=== PATIENT | female | born 1995 | race Caucasian/White ===

== ENCOUNTER 2016-11-18 15:02 | Emergency (ER) ==
[2016-11-18 15:09] VITALS: BP 145/65
[2016-11-18] MEDS ORDERED: ALBUTEROL NEB INH ONE (16:15)
[2016-11-18] MEDS ORDERED: DUONEB (A & A) INH ONE (16:15)
[2016-11-18] MEDS ORDERED: DECADRON IM ONE (16:17)
[2016-11-18] MEDS ORDERED: PULMICORT INH ONE (16:17)
--- NOTE | 2016-11-18 16:21 | PROVIDER DOCUMENTATION ---
HPI-General Adult - General Source: patient - History of Present Illness -Gen Adult Nature of Presenting Problems: 21 YOWF PRESENTS TO ED WITH C/O PT STATES SHE HAS HAD SEVERE COUGH, CONGESTION , AND BODY ACHES X 2 DAYS. PT DENIES ANY N/V/D. PT STATES SHE HAD A FEVER OF 103 AT HOME YESTERDAY, BUT FEVER HAS SUBSIDED NOW. Location of Pain/Injury: reports: generalized Pain Radiation: reports: no radiation Quality of Pain: reports: aching Severity: reports: moderate Onset/Duration: reports: 2 days ago Timing: reports: still present Context/Activities at Onset: reports: light activity Modifying Factors: improves with: nothing Associated Symptoms: reports: cough, muscle aches, sinus congestion/drainage Similar Symptoms Previously?: No Recently seen or treated by another doctor?: No <Donato Ennis - Last Filed: 11/18/16 16:29> <Dioni Barragan - Last Filed: 11/18/16 17:34> - General Chief Complaint: Cold Symptoms Stated Complaint: COUGH/SOB Time Seen by Provider: 11/18/16 16:10 Allergies/Adverse Reactions: Patient Allergies Allergy/AdvReac Type Severity Reaction Status Date / Time No Known Allergies Allergy Verified 09/01/16 18:56 Home Medications: Home Medication List Medication Instructions Recorded Confirmed Last Taken Type Hydrocodone Bit/Homatropine 5 ml PO Q6H PRN #100 ml 11/18/16 Unknown Rx [Hycodan Syrup] Prednisone 20 mg PO BID #10 tablet 11/18/16 Unknown Rx Review of Systems - Adult - REVIEW OF SYSTEMS - ADULT Constitutional: reports: fever (103 AT HOME YESTERDAY). denies: chills Eyes: reports: no symptoms reported Ears, Nose, Mouth & Throat: reports: no symptoms reported Cardiovascular: denies: chest pain, palpitations, syncope Respiratory: reports: cough, wheezing (MILD). denies: shortness of breath Gastrointestinal: denies: abdominal pain, diarrhea, nausea, vomiting Genitourinary: reports: no symptoms reported Musculoskeletal: denies: back pain, neck pain Integumentary: reports: no symptoms reported Neurological: denies: dizziness/vertigo, headache/migraines, syncope Psychiatric: reports: no symptoms reported Endocrine: reports: no symptoms reported Hematologic/Lymphatic: reports: no symptoms reported Allergic/Immunologic: reports: no symptoms reported All Other Systems: Reviewed and Negative <Donato Ennis - Last Filed: 11/18/16 16:29> Past History - Adult - PAST MEDICAL HISTORY-ADULT Review of Records: reports: Nursing Assessment Review, Medications Reviewed Neurological: reports: headaches/migraines - PRIOR SURGERIES/PROCEDURES Surgical/Procedure History: reports: appendectomy (pt unsure), tonsillectomy - PRIOR HOSPITALIZATIONS Prior Hospitalizations: reports: for other non-related - IMMUNIZATION STATUS Childhood Immunizations: See Nurse Assessment Flu Vaccine: See Nurse Assessment - FAMILY HISTORY Family History: reviewed, not pertinent - SOCIAL HISTORY Smoking: cigar, less than 1 pack/day Provider spent 3-5 mins advising pt. on dangers of tobacco.: Discussed manners to quit use, and f/u contacts for add'l counseling. Substance Use: denies Alcohol Use Frequency: never Living Situation: family <Donato Ennis - Last Filed: 11/18/16 16:29> Physical Exam-General - CONSTITUTIONAL General Appearance: alert, mild distress - EYES Eyes: PERRL/EOMI, pink conjunctivae - HEAD, EARS, NOSE, MOUTH & THROAT HENMT: normocephalic/atraumatic, moist mucous membranes - NECK Neck: non-tender, full range of motion, supple - RESPIRATORY Respiratory: chest non-tender, wheezing (MILD EXPIRATORY) - CARDIOVASCULAR Cardiovascular: normal peripheral pulses, regular rate, rhythm - GASTROINTESTINAL (ABDOMEN) Abdominal Exam: normal bowel sounds, non tender, soft - LYMPHATIC Lymphatic: no adenopathy - MUSCULOSKELETAL Back Exam: normal inspection, no CVA tenderness, no vertebral tenderness Extremity: normal range of motion, non-tender - SKIN Integumentary: normal color, normal turgor, warm/dry - NEUROLOGIC Neurologic: grossly normal - PSYCHIATRIC Psych/Mental Status: oriented x 3 <Donato Ennis - Last Filed: 11/18/16 16:29> Progress - PLAN OF CARE/RESULTS Progress/Plan/Lab Results: Laboratory Tests 11/18/16 15:18 Influenza A (Rapid) NEGATIVE Influenza B (Rapid) NEGATIVE Orders Category Date Time Status Flu [INFLUENZA SCREEN PL] Stat Lab 11/18/16 15:18 Completed Albuterol 2.5MG/Ipratrop 0.5MG [Duoneb (A & A)] Med 11/18/16 16:15 Discontinued 3 ml INH NOW ONE Albuterol [Albuterol Neb] Med 11/18/16 16:15 Discontinued 5 mg INH NOW ONE Budesonide [Pulmicort] Med 11/18/16 16:17 Discontinued 0.5 mg INH NOW ONE Dexamethasone [Decadron] Med 11/18/16 16:17 Discontinued 8 mg IM NOW ONE Aerosol Treatments Routine Oth 11/18/16 16:16 Active Aerosol Treatments Routine Oth 11/18/16 16:17 Active Aerosol Treatments Stat Ot 11/18/16 16:16 Active Aerosol Treatments Stat Oth 11/18/16 16:17 Active Vital Signs - 24 hr 11/18/16 15:06 Temperature 98.3 F Pulse Rate 86 Respiratory 18 Rate Blood Pressure 145/65 O2 Sat by Pulse 99 Oximetry <Donato Ennis - Last Filed: 11/18/16 16:29> - REASSESSMENT Reassessment #1 Time Reassessed: 17:30 (BS clear now. Can inhale without coughing. Is using albuteral from Family "Communal collection") Status: improving <Dioni Barragan - Last Filed: 11/18/16 17:34> Departure <Donato Ennis - Last Filed: 11/18/16 16:29> - Departure Time of Disposition Order: 17:31 Certified Medical Emergency: Emergent <Dioni Barragan - Last Filed: 11/18/16 17:34> - Departure DIAGNOSIS: Bronchitis Disposition: HOME 01 Condition: Good Additional Instructions: ED Follow Up Instructions: You have been treated by a care provider in the Emergency Department. These instructions are being provided to you so you can have an understanding of how to care for yourself upon discharge. Upon discharge from the Emergency Department, you are responsible for making arrangements for follow-up care by a physician of your choice. Take all prescribed medications as directed. Return to the Emergency Department immediately for any new or worsening symptoms. You may call the Physician Referral phone number at [phone] to obtain a list of Physicians who are taking new patients. Prescriptions: Hydrocodone Bit/Homatropine [Hycodan Syrup] 5 ml PO Q6H PRN #100 ml PRN Reason: Cough Prednisone 20 mg PO BID #10 tablet Instructions: Acute Bronchitis Attestation - Scribe Verification/Attestation Scribe:: Donato Ennis Acting as Scribe for:: Dioni Barragan Scribe documention review:: This chart was documented by a scribe and accurately reflects the service the provider performed and the decisions made by the provider. <Donato Ennis - Last Filed: 11/18/16 16:29> Physician Attestation - Physician Attestation I, the provider, attest to the following statement:: Dioni Barragan Physician documentation Attestation:: This documentation recorded by the scribe accurately reflects the service I personally performed and the decisions made by me. <Dioni Barragan - Last Filed: 11/18/16 17:34>
== END 2016-11-18 17:59 | disposition home or self-care (01) ==
LOC: P.ED 15:02
DX: J40 Bronchitis, not specified as acute or chronic (principal); R05 Cough; R09.81 Nasal congestion; M79.1 Myalgia; R50.9 Fever, unspecified; R06.02 Shortness of breath; R06.2 Wheezing; F17.210 Nicotine dependence, cigarettes, uncomplicated; Z71.6 Tobacco abuse counseling
CPT/HCPCS: 87804; 94640; J1100

== ENCOUNTER 2016-11-20 17:29 | Emergency (ER) ==
--- NOTE | 2016-11-20 17:48 | PROVIDER DOCUMENTATION ---
HPI-General Adult - General Chief Complaint: Cold Symptoms Stated Complaint: COUGHING,CONGESTED Time Seen by Provider: 11/20/16 17:48 Allergies/Adverse Reactions: Patient Allergies Allergy/AdvReac Type Severity Reaction Status Date / Time No Known Allergies Allergy Verified 11/20/16 17:57 Home Medications: Home Medication List Medication Instructions Recorded Confirmed Last Taken Type Prednisone 20 mg PO BID #10 tablet 11/18/16 11/20/16 11/19/16 Rx Budesonide [Pulmicort] 0.5 mg INH RTQ12H #10 neb 11/20/16 Unknown Rx Guaifenesin/Dextromethorphan 10 ml PO BID #120 ml 11/20/16 Unknown Rx [Guaifenesin Dm Syrup] Methylprednisolone [Medrol Dosepak] 4 mg PO DIRECTED #1 package 11/20/16 Unknown Rx - History of Present Illness -Gen Adult Nature of Presenting Problems: pt reports one wk h/o cough and body aches. Denies fever. Has wheezing that she is treating at home with nebulized albuterol with no improvement in symptoms. Was seen at [place] 2 days ago but cough meds were too expensive. Location of Pain/Injury: reports: chest Pain Radiation: reports: no radiation Quality of Pain: reports: aching Severity: reports: moderate Onset/Duration: reports: last week Timing: reports: getting worse Context/Activities at Onset: reports: none Associated Symptoms: reports: cough, muscle aches, shortness of breath, pain with inspiration Similar Symptoms Previously?: Yes Recently seen or treated by another doctor?: Yes Review of Systems - Adult - REVIEW OF SYSTEMS - ADULT Constitutional: denies: chills, fever Eyes: denies: blurred vision, double vision Ears, Nose, Mouth & Throat: denies: sinus problem, hoarseness, throat pain Cardiovascular: denies: chest pain, heart murmur, irregular heart rate Respiratory: reports: cough, pleurisy, shortness of breath, wheezing Gastrointestinal: reports: abdominal pain (from forceful coughing) Neurological: denies: numbness, paresthesia All Other Systems: Reviewed and Negative Past History - Adult - PAST MEDICAL HISTORY-ADULT Review of Records: reports: Old Records Reviewed, Nursing Assessment Review, Medications Reviewed, Social history reviewed & non-contributory. Major Childhood Illnesses: reports: denies history Neurological: reports: headaches/migraines - PRIOR SURGERIES/PROCEDURES Surgical/Procedure History: reports: appendectomy (pt unsure), tonsillectomy - PRIOR HOSPITALIZATIONS Prior Hospitalizations: reports: for other non-related - IMMUNIZATION STATUS Childhood Immunizations: See Nurse Assessment Flu Vaccine: See Nurse Assessment - FAMILY HISTORY Family History: reviewed, not pertinent - SOCIAL HISTORY Smoking: non-smoker Physical Exam-General - PHYSICAL EXAM-ADULT Initial Vital Signs Reviewed: Yes - CONSTITUTIONAL General Appearance: appears well, alert, mild distress, obese - EYES Eyes: PERRL/EOMI, pink conjunctivae - HEAD, EARS, NOSE, MOUTH & THROAT HENMT: normocephalic/atraumatic, moist mucous membranes, normal ENT inspection, pharynx normal. negative: pharyngeal erythema, tonsillar exudate, frontal tenderness, maxillary tenderness - NECK Neck: non-tender, full range of motion, supple. negative: lymphadenopathy - RESPIRATORY Respiratory: wheezing. negative: chest non-tender (chest tender to compression and palpation) - CARDIOVASCULAR Cardiovascular: regular rate, rhythm - MUSCULOSKELETAL Back Exam: normal inspection, no CVA tenderness, no vertebral tenderness Extremity: normal gait, normal inspection - SKIN Integumentary: normal color, normal turgor, warm/dry - NEUROLOGIC Neurologic: grossly normal, no motor/sensory deficits - PSYCHIATRIC Psych/Mental Status: normal thought content, normal thought process Progress - XRAY 1 XRAY Study: Chest Impression: Abnormal XRAY Interpretation: bronchitis Departure - Departure Time of Disposition Order: 19:15 DIAGNOSIS: Bronchitis Disposition: HOME 01 Certified Medical Emergency: Emergent Condition: Good Additional Instructions: ED Follow Up Instructions: You have been treated by a care provider in the Emergency Department. These instructions are being provided to you so you can have an understanding of how to care for yourself upon discharge. Upon discharge from the Emergency Department, you are responsible for making arrangements for follow-up care by a physician of your choice. Take all prescribed medications as directed. Return to the Emergency Department immediately for any new or worsening symptoms. You may call the Physician Referral phone number at [phone] to obtain a list of Physicians who are taking new patients. Prescriptions: Guaifenesin/Dextromethorphan [Guaifenesin Dm Syrup] 10 ml PO BID #120 ml Methylprednisolone [Medrol Dosepak] 4 mg PO DIRECTED #1 package Budesonide [Pulmicort] 0.5 mg INH RTQ12H #10 neb Referrals: None,PCP [Primary Care Provider] - Suman Munoz MD [STAFF PHYSICIAN] - Attestation - Physician/ MILEY Attestation Patient care was provided by Advanced Practice Provider:: Yes Advanced Practice Provider:: Rosalina Holley Advanced Practice Provider documentation review:: The Mid-level provider documentation, treatment plan and medical decision making was reviewed by the physician who agrees with all treatment and medical decision making by the MLP.
[2016-11-20] MEDS ORDERED: XOPENEX NEB INH ONE (18:36)
[2016-11-20] MEDS ORDERED: PULMICORT INH ONE (18:36)
[2016-11-20] MEDS ORDERED: PULMICORT ONE (18:39)
[2016-11-20] MEDS ORDERED: NS NEB INH SCH (18:45)
[2016-11-20 19:47] VITALS: BP 144/69
--- NOTE | 2016-11-21 07:32 | Diag Imaging Result Document ---
PROCEDURE NAME: CHEST-2 VIEWS - 11/20/2016 FRONTAL AND LATERAL CHEST, TWO VIEWS: COMPARISON: 12/30/2015. FINDINGS: The lungs are well expanded. The heart is not enlarged. The vessels are not distended. No infiltrates. No pleural effusions. IMPRESSION: No pneumonia.
== END 2016-11-20 19:47 | disposition home or self-care (01) ==
LOC: ED 17:29
DX: J40 Bronchitis, not specified as acute or chronic (principal); R05 Cough; R09.81 Nasal congestion; R06.2 Wheezing; M79.1 Myalgia; R06.02 Shortness of breath; R07.1 Chest pain on breathing; R09.1 Pleurisy; R10.9 Unspecified abdominal pain; E66.9 Obesity, unspecified
CPT/HCPCS: 71020; 81025; 87081; 87430; 87804; 94640; 99283